=== PATIENT | female | born 1980 | race Caucasian/White ===

== ENCOUNTER → 2016-10-26 | Outpatient (CLI) | payer OTHER | END | disposition home or self-care (01) | LOC: CFH 09:13 | PROVIDERS: ATTEND Nurse Practitioner Primary Care | DX: M25.551 Pain in right hip (principal); M25.552 Pain in left hip; Z97.5 Presence of (intrauterine) contraceptive device | CPT/HCPCS: 73523 ==

== ENCOUNTER 2016-11-18 16:00 | Emergency (ER) | payer OTHER ==
[~2016-11-18] VITALS: Ht 157.5 cm; Wt 61.9 kg
[2016-11-18] MEDS ORDERED: PLEASE ENTER ALLERGIES MC SCH ×2 (16:30)
[2016-11-18] MEDS ORDERED: SODIUM CHLORIDE 0.9% 1,000ML IV ONE (16:30)
[2016-11-18] MEDS ORDERED: ONDANSETRON 2MG/ML, 2ML IVPush ONE (16:30)
[2016-11-18] MEDS ORDERED: SODIUM CHLORIDE FLUSH 10ML SYR IVF ONE (16:30)
[2016-11-18 17:12] LABS: HEMATOCRIT 45.1 % (34.6-47.8); HEMOGLOBIN 15.3 g/dL (11.7-16.4); WHITE BLOOD COUNT 10.1 x10^3/uL (3.4-10)
[2016-11-18 17:22] LABS: BLOOD UREA NITROGEN 15 mg/dL (7-18)
[2016-11-18] MEDS ORDERED: ONDANSETRON 2MG/ML, 2ML ONE (17:33)
[2016-11-18] MEDS ORDERED: MORPHINE SULFATE 4 MG/ML, 1ML ONE ×2 (17:33→19:14)
[2016-11-18] MEDS ORDERED: KETOROLAC 30 MG/1 ML ONE (17:33)
[2016-11-18] MEDS: MORPHINE SULFATE 4 MG/ML, 1ML IVPush PRN ×2 (17:45→19:23)
[2016-11-18] MEDS ORDERED: HYDROmorphone 1 MG/ML, 1ML IV ONE (18:30)
[2016-11-18] MEDS ORDERED: HYDROmorphone 1 MG/ML, 1ML ONE (18:43)
[2016-11-18] MEDS ORDERED: KETOROLAC 30 MG/1 ML IVPush ONE (19:00)
[2016-11-18] MEDS ORDERED: FAMOTIDINE 20 MG/2 ML ONE ×2 (19:14→19:42)
[2016-11-18] MEDS ORDERED: MAALOX/HYOSCYAMINE/LIDOCAINE 45 ML BTL ONE ×2 (19:14→19:42)
[2016-11-18] MEDS ORDERED: MAALOX/HYOSCYAMINE/LIDOCAINE 45 ML BTL PO ONE (19:30)
[2016-11-18] MEDS ORDERED: FAMOTIDINE 20 MG/2 ML IVPush ONE (20:00)
[2016-11-18] MEDS ORDERED: FAMOTIDINE 20 MG TABLET PO ONE (20:00)
[2016-11-18 21:43] VITALS: BP 108/67
== END 2016-11-18 21:46 | disposition home or self-care (01) ==
LOC: ED 21:30
DX: K29.70 Gastritis, unspecified, without bleeding (principal); N20.0 Calculus of kidney; G89.29 Other chronic pain
CPT/HCPCS: 36415; 74176; 80048; 81003; 82040; 84703; 85025; 96361; 96374; 96375; 96376; 99285; J1170; J1885; J2405; J7030; S0028

== ENCOUNTER → 2016-11-23 | Outpatient (CLI) | payer OTHER | END | disposition home or self-care (01) | LOC: CFH 07:41 | PROVIDERS: ATTEND Physician Assistant Surgical | DX: M24.152 Other articular cartilage disorders, left hip (principal); M24.151 Other articular cartilage disorders, right hip | CPT/HCPCS: 73525; 73722; A9585; J3301; J3490; Q9967 ==

== ENCOUNTER → 2016-11-24 | Outpatient (CLI) | payer OTHER ==
[~2016-11-24] MED LIST: LIDOCAINE 1%, 20ML ONE; MULTIHANCE 529 MG/ML, 5ML IV ONE; OMNIPAQUE 300 MG/ML, 10ML VIAL ONE; SODIUM BICARBONATE 4.2%, 5ML ONE; TRIAMCINOLONE ACETONIDE 40 MG/ML, 1ML ONE
== END | disposition home or self-care (01) ==
LOC: CFH 08:42
PROVIDERS: ATTEND Physician Assistant Surgical
DX: M24.151 Other articular cartilage disorders, right hip (principal)
CPT/HCPCS: 73525; 73722; A9577; J3301; J3490; Q9967

== ENCOUNTER → 2017-07-08 | Outpatient (CLI) | payer OTHER ==
[2017-07-08 12:36] LABS: MICROSCOPIC NOT IND
[2017-07-08 12:38] LABS: CULTURE INDICATED? NO
[2017-07-08 12:41] LABS: BASOPHILS # (AUTO) 0.05 x10^3/uL (0-0.1); BASOPHILS % (AUTO) 1 % (0-1); EOSINOPHILS # (AUTO) 0.08 x10^3/uL (0-0.4); EOSINOPHILS % (AUTO) 1 % (1-7); LYMPHOCYTES # (AUTO) 2.25 x10^3/uL (1-3.4); LYMPHOCYTES % (AUTO) 33 % (22-44); MD NO; MEAN CORPUSCULAR HEMOGLOBIN 32.5 pg (27.0-34.8); MEAN CORPUSCULAR VOLUME 98.4 fL (80-100); MEAN PLATELET VOLUME 8.8 fL (7.4-10.4); MONOCYTES # (AUTO) 0.47 x10^3/uL (0.2-0.8); MONOCYTES % (AUTO) 7 % (2-9); NEUTROPHILS % (AUTO) 58 % (42-75); PLATELET COUNT 231 x10^3/uL (130-400); RED BLOOD COUNT 4.25 x10^6/uL (3.82-5.3); RED CELL DISTRIBUTION WIDTH 13.1 % (9.6-15.2)
[2017-07-08 12:56] LABS: ALBUMIN 3.8 g/dL (3.4-5.0); ANION GAP 8 mmol/L (5-15); CALCIUM 8.5 mg/dL (8.5-10.1); CHLORIDE 110 mmol/L (98-107)
[2017-07-08 13:22] LABS: ALANINE AMINOTRANSFERASE 28 U/L (12-78); ALKALINE PHOSPHATASE 41 U/L (45-117); BILIRUBIN,TOTAL 0.9 mg/dL (0.2-1.0); CHOLESTEROL, TOTAL 145 mg/dL (140-239); CREATININE 0.77 mg/dL (0.55-1.02); FOLATE LEVEL 9.9 ng/mL (3.1-17.5); FREE T4 (FREE THYROXINE) 0.97 ng/dL (0.76-1.46); HDL CHOL % 34 % (28-40); HDL CHOLESTEROL (DIRECT) 49 mg/dL (40-60); LDL CHOLESTEROL,CALCULATED 87 mg/dL (54-169); LDL/HDL RATIO 1.8 (0.5-3.0); TOTAL PROTEIN 6.8 g/dL (6.4-8.2); TRIGLYCERIDES 47 mg/dL (50-200); VLDL CHOLESTEROL 9 mg/dL (0-25)
== END ==
LOC: LAB 10:04
PROVIDERS: ATTEND Nurse Practitioner Primary Care
DX: Z13.220 Encounter for screening for lipoid disorders (principal); K21.9 Gastro-esophageal reflux disease without esophagitis; R53.83 Other fatigue; Z87.442 Personal history of urinary calculi
CPT/HCPCS: 36415; 80053; 80061; 81003; 82043; 82306; 82570; 82607; 82746; 84425; 84439; 84443; 84480; 85025

== ENCOUNTER 2018-09-22 11:10 | Emergency (ER) | payer OTHER ==
[~2018-09-22] VITALS: Ht 157.5 cm; Wt 62.0 kg
[2018-09-22 11:12] VITALS: BP 121/86
--- NOTE | 2018-09-22 11:20 | NUR ---
FIRST CONTACT WITH PT. PT STATES "PUSHED A BED THROUGH THE DOOR AND I HAD TO PULL HIM OUT OF THE DOOR. IF I TURN MY RIB CAGE IT IS A SHARP STABBING PAIN IN BETWEEN MY SPINE AND SCAPULA ON MY BACK." PT'S AOX4. RESPS EVEN AND UNLABORED. AWAITING ORDERES.
[2018-09-22] MEDS ORDERED: DIAZEPAM 5 MG TABLET ONE (11:37)
--- NOTE | 2018-09-22 11:40 | NUR ---
PT MEDICATED PER EMAR. PT TOLERATED WELL.
--- NOTE | 2018-09-22 11:52 | NUR ---
PT BACK TO ROOM FROM XRAY.
[2018-09-22] MEDS ORDERED: DIAZEPAM 5 MG TABLET PO ONE (12:00)
--- NOTE | 2018-09-22 12:32 | NUR ---
Patient given discharge instructions and they have confirmed that they understand the instructions. Patient ambulatory with steady gait.
== END 2018-09-22 12:33 | disposition home or self-care (01) ==
LOC: ED 12:09
DX: S29.012A Strain of muscle and tendon of back wall of thorax, initial encounter (principal); X58.XXXA Exposure to other specified factors, initial encounter; Y93.89 Activity, other specified; Y92.89 Other specified places as the place of occurrence of the external cause; Y99.8 Other external cause status
CPT/HCPCS: 71046; 99283

== ENCOUNTER 2019-12-08 11:47 | Day surgery (SDC) | payer OTHER ==
[~2019-12-08] VITALS: Ht 157.5 cm; Wt 60.5 kg
[2019-12-08] MEDS ORDERED: CHLORHEXIDINE 15 ML UDC MM ONE (12:00)
[2019-12-08] MEDS ORDERED: LIDOCAINE-MPF 1%, 2ML INFIL ONE (12:00)
[2019-12-08] MEDS ORDERED: CHLORHEXIDINE 15 ML UDC ONE (12:08)
[2019-12-08 12:11] VITALS: BP 105/73
[2019-12-08] MEDS ORDERED: LIDOCAINE-MPF 1%, 2ML ONE (12:16)
[2019-12-08] MEDS ORDERED: OMEP40CA42 PO (12:17)
[2019-12-08] MEDS ORDERED: OXYC5CAP2 PO (12:17)
[2019-12-08] MEDS ORDERED: TAMS-11 PO (12:17)
[2019-12-08] MEDS: LACTATED RINGERS 1,000 ML IV SCH ×2 (12:22→12:29)
[2019-12-08] MEDS ORDERED: PLEASE ENTER HEIGHT AND WEIGHT MC SCH (12:30)
[2019-12-08 12:43] LABS: HCG UR SG 1.009 (1.003-1.030)
[2019-12-08] MEDS ORDERED: SCOPOLAMINE 1MG PATCH TD ONE ×2 (12:53)
[2019-12-08] MEDS ORDERED: FENTANYL PF 100 MCG/2ML ONE ×2 (13:27→15:47)
[2019-12-08] MEDS ORDERED: MIDAZOLAM 1 MG/ML, 2ML ONE (13:27)
[2019-12-08] MEDS ORDERED: CEFAZOLIN 1,000 MG ONE (14:25)
[2019-12-08] MEDS ORDERED: DEXAMETHASONE 4 MG/ML, 1ML ONE (14:25)
[2019-12-08] MEDS ORDERED: ONDANSETRON 2MG/ML, 2ML ONE (14:25)
[2019-12-08] MEDS ORDERED: PROPOFOL 10 MG/ML, 20ML ONE (14:25)
[2019-12-08] MEDS ORDERED: LABETALOL 5MG/ML, 20ML IV PRN (15:00)
[2019-12-08] MEDS ORDERED: MEPERIDINE/PF 25MG/0.5ML IVPush PRN (15:00)
[2019-12-08] MEDS ORDERED: ACETAMINOPHEN 325 MG TABLET PO PRN (15:00)
[2019-12-08] MEDS ORDERED: ALBUTEROL SULFATE 2.5 MG/3 ML NPPB PRN (15:00)
[2019-12-08] MEDS ORDERED: LORazepam 2 MG/ML, 1ML IVPush PRN (15:00)
[2019-12-08] MEDS ORDERED: FENTANYL PF 100 MCG/2ML IV PRN (15:00)
[2019-12-08] MEDS ORDERED: PROMETHAZINE 25 MG/ML, 1ML IVPush PRN (15:00)
[2019-12-08] MEDS ORDERED: METHOCARBAMOL 1,000 MG in DEXTROSE 5% 100 ML IV PRN (15:00)
[2019-12-08] MEDS ORDERED: ACETAMINOPHEN 650 MG/20.3 ML UDC ONE (15:47)
[2019-12-08] MEDS ORDERED: OXYcodone 5 MG/5 ML ORAL.SOL UDC ONE (15:47)
[2019-12-08] MEDS: OXYcodone 5 MG/5 ML ORAL.SOL UDC PO PRN ×2 (15:48→16:30)
[2019-12-08] MEDS ORDERED: PHENAZOPYRIDINE 200 MG TABLET ONE (16:58)
[2019-12-08] MEDS ORDERED: PHENAZOPYRIDINE 200 MG TABLET PO SCH (17:00)
== END 2019-12-08 17:20 | disposition home or self-care (01) ==
LOC: OUT 11:47 → EDSTATUS 14:45 → OUT 17:20
PROVIDERS: ATTEND Urology
DX: N13.2 Hydronephrosis with renal and ureteral calculous obstruction (principal); M19.90 Unspecified osteoarthritis, unspecified site; Z79.899 Other long term (current) drug therapy; Z98.890 Other specified postprocedural states; Z20.828 Contact with and (suspected) exposure to other viral communicable diseases
CPT/HCPCS: 36415; 52356; 74420; 81025; 82360; 87635; 88300; C1758; C1769; C2617; J0690; J1100; J2250; J2405; J2704; J3010; J7120

== ENCOUNTER → 2019-12-15 | Outpatient (CLI) | payer OTHER ==
[~2019-12-15] MED LIST changes: -LIDOCAINE 1%, 20ML ONE; -MULTIHANCE 529 MG/ML, 5ML IV ONE; +OMEP40CA42 PO; -OMNIPAQUE 300 MG/ML, 10ML VIAL ONE; +OXYC5CAP2 PO; -SODIUM BICARBONATE 4.2%, 5ML ONE; +TAMS-11 PO; -TRIAMCINOLONE ACETONIDE 40 MG/ML, 1ML ONE
== END | disposition home or self-care (01) ==
LOC: CFH 13:19
PROVIDERS: ATTEND Nurse Practitioner Family
DX: Z12.31 Encounter for screening mammogram for malignant neoplasm of breast (principal); N64.89 Other specified disorders of breast
CPT/HCPCS: 77063; 77067

== ENCOUNTER → 2020-01-01 | Outpatient (CLI) | payer OTHER | END | disposition home or self-care (01) | LOC: CFH 12:59 | PROVIDERS: ATTEND Nurse Practitioner Family | DX: N63.20 Unspecified lump in the left breast, unspecified quadrant (principal) | CPT/HCPCS: 76642; 77065 ==

== ENCOUNTER → 2020-06-04 | Outpatient (CLI) | payer OTHER | END | disposition home or self-care (01) | LOC: CFH 06:37 | PROVIDERS: ATTEND Physician Assistant | DX: N20.0 Calculus of kidney (principal) | CPT/HCPCS: 74176 ==

== ENCOUNTER 2020-06-05 09:43 | Emergency (ER) | payer OTHER ==
[~2020-06-05] VITALS: Ht 152.4 cm; Wt 60.5 kg
--- NOTE | 2020-06-05 10:10 | NUR ---
PT AMBULATORY TO ROOM 7 W/ C/O BILAT LOWER BACK PAIN AND RLQ ABD PAIN ON PALPATION STARTED WEDNESDAY. PT STATES SHE WENT TO SEE UROLOGY WEDNESDAY AND HAD CT W/O CONT SCAN DONE YESTERDAY SHOWED NEPHROLITHIASIS. PT HAS HX KIDNEY STONES. DENIES BLOOD IN URINE. PT RESTING ON GURNEY. NADN. MONITORS APPLIED. MAJO PEREZ AT BEDSIDE FOR EVAL.
[2020-06-05 10:47] LABS: MICROSCOPIC NOT IND
[2020-06-05] MEDS ORDERED: HYDROmorphone 1 MG/ML, 1ML INJ ONE (10:54)
[2020-06-05] MEDS ORDERED: ONDANSETRON 2MG/ML, 2ML ONE (10:54)
[2020-06-05 10:59] LABS: BASOPHILS % (AUTO) 1 % (0-1); EOSINOPHILS % (AUTO) 1 % (1-7); LYMPHOCYTES % (AUTO) 33 % (22-44); MEAN CORPUSCULAR HEMOGLOBIN 34.3 pg (27.0-34.8); MEAN CORPUSCULAR HGB CONC 33.7 g/dL (32.4-35.8); MEAN PLATELET VOLUME 8.9 fL (7.4-10.4); MONOCYTES % (AUTO) 6 % (2-9); NEUTROPHILS % (AUTO) 58 % (42-75); PLATELET COUNT 221 x10^3/uL (130-400); RED BLOOD COUNT 4.13 x10^6/uL (3.82-5.3); RED CELL DISTRIBUTION WIDTH 12.5 % (9.6-15.2)
[2020-06-05] MEDS ORDERED: HYDROmorphone 1 MG/ML, 1ML INJ IV ONE (11:00)
[2020-06-05] MEDS ORDERED: ONDANSETRON 2MG/ML, 2ML IVPush ONE (11:00)
[2020-06-05 11:04] LABS: MD NO
[2020-06-05 11:10] LABS: ALANINE AMINOTRANSFERASE 13 U/L (12-78); CALCIUM 8.8 mg/dL (8.5-10.1); CHLORIDE 112 mmol/L (98-107); CREATININE 0.69 mg/dL (0.55-1.02)
[2020-06-05 11:14] LABS: ALKALINE PHOSPHATASE 68 U/L (45-117); BILIRUBIN,TOTAL 0.7 mg/dL (0.2-1.0); TOTAL PROTEIN 7.5 g/dL (6.4-8.2)
--- NOTE | 2020-06-05 11:16 | NUR ---
PT RESTING ON GURNEY. NADN. ATKINSON.
[2020-06-05 11:17] LABS: ANION GAP 3 mmol/L (5-15)
[2020-06-05] MEDS ORDERED: ONDANSETRON ODT 4 MG PO ONE (11:30)
[2020-06-05] MEDS ORDERED: HYDROmorphone 1 MG/ML, 1ML INJ IM ONE (11:30)
[2020-06-05] MEDS ORDERED: MAALOX/HYOSCYAMINE/LIDOCAINE 45 ML BTL ONE (11:57)
[2020-06-05] MEDS ORDERED: MAALOX/HYOSCYAMINE/LIDOCAINE 45 ML BTL PO ONE (12:00)
[2020-06-05 12:06] VITALS: BP 104/69
--- NOTE | 2020-06-05 12:06 | NUR ---
PT RESTING ON GURNEY. NADN. ATKINSON.
== END 2020-06-05 12:46 | disposition home or self-care (01) ==
LOC: ED 11:10
DX: R10.84 Generalized abdominal pain (principal); R11.0 Nausea
CPT/HCPCS: 36415; 80053; 81003; 83690; 84703; 85025; 96374; 96375; 99284; J1170; J2405

== ENCOUNTER → 2020-10-21 | Outpatient (CLI) | payer OTHER ==
[~2020-10-21] MED LIST changes: -OMEP40CA42 PO; +OMEP40CA8 PO
[2020-10-21 08:58] LABS: BASOPHILS % (AUTO) 1 % (0-1); EOSINOPHILS % (AUTO) 2 % (1-7); LYMPHOCYTES % (AUTO) 22 % (22-44); MEAN CORPUSCULAR HEMOGLOBIN 33.6 pg (27.0-34.8); MEAN CORPUSCULAR HGB CONC 33.6 g/dL (32.4-35.8); MEAN PLATELET VOLUME 8.2 fL (7.4-10.4); MONOCYTES % (AUTO) 7 % (2-9); NEUTROPHILS % (AUTO) 69 % (42-75); PLATELET COUNT 240 x10^3/uL (130-400); RED BLOOD COUNT 3.97 x10^6/uL (3.82-5.3); RED CELL DISTRIBUTION WIDTH 12.4 % (9.6-15.2)
[2020-10-21 09:10] LABS: CALCIUM 9.2 mg/dL (8.5-10.1); CHLORIDE 109 mmol/L (98-107)
[2020-10-21 09:12] LABS: MICROSCOPIC NOT IND
[2020-10-21 09:37] LABS: ALANINE AMINOTRANSFERASE 14 U/L (12-78); ALBUMIN 3.7 g/dL (3.4-5.0); ALKALINE PHOSPHATASE 62 U/L (45-117); ANION GAP 4 mmol/L (5-15); BILIRUBIN,TOTAL 0.6 mg/dL (0.2-1.0); CHOL/HDL RATIO 2.4; CHOLESTEROL, TOTAL 122 mg/dL (140-239); CREATININE 0.77 mg/dL (0.55-1.02); FOLATE LEVEL 9.8 ng/mL (3.1-17.5); FREE T4 (FREE THYROXINE) 0.98 ng/dL (0.76-1.46); HDL CHOL % 41 % (28-40); HDL CHOLESTEROL (DIRECT) 50 mg/dL (40-60); LDL CHOLESTEROL,CALCULATED 52 mg/dL (54-169); TOTAL PROTEIN 6.9 g/dL (6.4-8.2); TRIGLYCERIDES 102 mg/dL (50-200); VLDL CHOLESTEROL 20 mg/dL (0-25)
== END | disposition home or self-care (01) ==
LOC: LAB 08:31
PROVIDERS: ATTEND Nurse Practitioner Primary Care
DX: Z13.220 Encounter for screening for lipoid disorders (principal); E55.9 Vitamin D deficiency, unspecified; F06.4 Anxiety disorder due to known physiological condition; R82.90 Unspecified abnormal findings in urine; K21.9 Gastro-esophageal reflux disease without esophagitis; Z71.3 Dietary counseling and surveillance; Z79.899 Other long term (current) drug therapy
CPT/HCPCS: 36415; 80053; 80061; 81003; 82306; 82607; 82652; 82746; 83036; 84425; 84439; 84443; 84481; 85025